=== PATIENT | male | born 1980 | race Caucasian/White ===

== ENCOUNTER → 2017-09-04 | Outpatient (CLI) | payer BC ==
[~2017-09-04] MED LIST: BACTRIM DS 8001 TAB PO; NEXIUM 20MG20 MG PO; NORCO 325 MG-7.1 TAB PO; STOOL SOFTENER100 M2 PO
== END ==
LOC: COL.RAD 07:18
DX: K80.20 Calculus of gallbladder without cholecystitis without obstruction (principal)

== ENCOUNTER 2017-09-12 06:26 | Day surgery (SDC) | payer BC ==
[2017-09-12] VITALS (10 sets, daily range): BP systolic 115–142; BP diastolic 60–79; PULSE 59–81; TEMP 97.6–97.7
[~2017-09-12] VITALS: Ht 182.9 cm; Wt 153.3 kg
[2017-09-12] MEDS ORDERED: COLACE 100100 MG/CAP PO (10:55)
[2017-09-12] MEDS ORDERED: NORCO 325 MG-51 TAB PO (10:55)
[2017-09-12] MEDS ORDERED: MOTRIN 600600 MG/TAB PO (10:55)
== END 2017-09-12 16:14 | disposition home or self-care (01) ==
LOC: SDCO 06:26
DX: K80.10 Calculus of gallbladder with chronic cholecystitis without obstruction (principal); E66.01 Morbid (severe) obesity due to excess calories; Z68.41 Body mass index [BMI] 40.0-44.9, adult
CPT/HCPCS: J0690; J1100; J1170; J1885; J2270; J2405; J2704; J3010; J7120